=== PATIENT | female | born 1950 | race Caucasian/White ===

== ENCOUNTER 2018-03-18 13:00 | Emergency (ER) | payer MEDICARE ==
[~2018-03-18] VITALS: Ht 162.6 cm; Wt 91.1 kg
[2018-03-18 13:03] VITALS: BP 154/102
== END 2018-03-18 14:04 | disposition home or self-care (01) ==
LOC: ED 13:58
DX: E03.1 Congenital hypothyroidism without goiter (principal); I10 Essential (primary) hypertension; M54.9 Dorsalgia, unspecified; G89.29 Other chronic pain; F32.9 Major depressive disorder, single episode, unspecified; Z76.0 Encounter for issue of repeat prescription
CPT/HCPCS: 99283